=== PATIENT | male | born 1980 | race Caucasian/White ===

== ENCOUNTER → 2017-09-20 | Outpatient (CLI) | payer OTHER ==
--- NOTE | 2017-09-20 15:45 | DIAGNOSTIC IMAGING REPORT ---
CHEST 2 VIEWS ROUTINE CLINICAL HISTORY: 37 years-old Male presenting with COUGH. TECHNIQUE: PA and lateral views of the chest were obtained. COMPARISON: None. FINDINGS: Cardiomediastinal silhouette normal. Mild bronchial wall thickening suggested. Lungs and pleural spaces clear. Osseous structures normal. Upper abdomen normal. IMPRESSION: 1. Bronchial wall thickening could suggest bronchitis. No focal infiltrate to suggest pneumonia. Electronically signed by: Abilio Howard M.D. 09/20/2017 3:44 PM Dictated Date/Time: 09/20/2017 3:43 PM
== END | disposition home or self-care (01) ==
LOC: C.RAD1850 14:49
PROVIDERS: ATTEND Family Medicine
DX: J98.09 Other diseases of bronchus, not elsewhere classified (principal); R05 Cough